=== PATIENT | female | born 2005 | race African-American/Black ===

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

== ENCOUNTER 2024-10-28 05:58 | Emergency (ER) | payer OTHER ==
[~2024-10-28] VITALS: Ht 170.2 cm; Wt 97.7 kg
[~2024-10-28 05:58] MED LIST: ANTIBIOTIC PO; CIPR7.5D AD
[2024-10-28 06:09] VITALS: BP 110/62; PULSE 69; RESP 16; TEMP 97.7; O2SAT 99
[2024-10-28 06:22] LABS: COVID AG,FIA SOURCE NASAL SWAB
[2024-10-28 06:44] LABS: SARS-COV2 (COVID) ANTIGEN,FIA Negative (Negative)
[2024-10-28 06:45] LABS: RAPID GROUP A STREP NEGATIVE (NEGATIVE)
[2024-10-28 06:47] LABS: INFLUENZA TYPE A NEGATIVE FOR TYPE A (NEGATIVE); INFLUENZA TYPE B NEGATIVE FOR TYPE B (NEGATIVE)
[2024-10-28] MEDS ORDERED: AMOX500C2 PO (07:13)
[2024-10-28] MEDS: AMOXICILLIN TRIHYDRATE 250 MG CAPSULE PO ONE (07:27)
== END 2024-10-28 07:32 | disposition home or self-care (01) ==
LOC: EMS 06:34
DX: H66.92 Otitis media, unspecified, left ear (principal); J02.9 Acute pharyngitis, unspecified; Z20.822 Contact with and (suspected) exposure to COVID-19
CPT/HCPCS: 87430; 87804; 99283